=== PATIENT | female | born 1990 | race Caucasian/White ===

== ENCOUNTER 2016-04-07 03:51 | Inpatient (IN) | payer MEDICAID, OTHER ==
[~2016-04-07] VITALS: Ht 170.2 cm; Wt 94.3 kg
[2016-04-07 06:14] VITALS: BP 133/83; PULSE 105; RESP 18; TEMP 97.7; O2SAT 95
[2016-04-07 06:29] VITALS: BP 133/83; PULSE 105; RESP 18; TEMP 97.7; O2SAT 95
[2016-04-07] MEDS ORDERED: ACETAMINOPHEN 325 MG TAB PO PRN (06:30)
[2016-04-07] MEDS ORDERED: ALUMINUM/MAGNESIUM/SIMETH 30 ML CUP PO PRN (06:30)
[2016-04-07] MEDS ORDERED: MAGNESIUM HYDROXIDE SUSP 30 ML CUP PO PRN (06:30)
[2016-04-07] MEDS: hydrOXYzine HCL 50 MG TAB PO PRN ×2 (06:39→13:40)
[2016-04-07] MEDS: NICOTINE 21 MG/24 HR PATCH T-DERMAL SCH (09:00)
[2016-04-07] MEDS ORDERED: ALBUTEROL SULFATE 90 MCG/ACT HFA 8 GM INHALER INH PRN (10:15)
[2016-04-07] MEDS: GABAPENTIN 400 MG CAP PO SCH ×2 (10:51→20:41)
[2016-04-07] MEDS ORDERED: diphenhydrAMINE HCL 50 MG CAP PO PRN (12:15)
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
[2016-04-07 14:14] LABS: AUTOMATED NEUTROPHIL # 5.7 TH/MM3 (1.8-7.7); BASOPHIL % 0.3 % (0.0-2.0); EOSINOPHIL % 0.1 % (0.0-4.0); HEMATOCRIT 36.6 % (35.0-46.0); HEMO FLAGS DIFF FINAL; LYMPH % 24.8 % (9.0-44.0); LYMPHOCYTE # 2.1 TH/MM3 (1.0-4.8); MEAN CORPUSCULAR HEMOGLOBIN 30.1 PG (27.0-34.0); MEAN CORPUSCULAR HGB CONC 33.4 % (32.0-36.0); NEUT % 68.8 % (16.0-70.0); PLATELET COUNT 219 TH/MM3 (150-450); RED BLOOD COUNT 4.07 MIL/MM3 (4.00-5.30); RED CELL DISTRIBUTION WIDTH 12.3 % (11.6-17.2); WHITE BLOOD COUNT 8.3 TH/MM3 (4.0-11.0)
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
[2016-04-07] MEDS ORDERED: RESP: ALBUTEROL 2.5 MG/IPRATROPIUM 0.5 MG NEB (PRN) NEB (16:30)
[2016-04-07] MEDS: ALPRAZolam 1 MG TAB PO SCH (20:41)
[2016-04-07] MEDS: QUEtiapine FUMARATE 300 MG TAB PO SCH (20:41)
[2016-04-07 21:00] VITALS: BP 116/76; PULSE 90; RESP 18; TEMP 98; O2SAT 96
[2016-04-07] MEDS: REMOVE OLD NICOTINE PATCH T-DERMAL SCH (21:00)
[2016-04-08 05:47] VITALS: BP 120/71; PULSE 71; RESP 16; TEMP 98; O2SAT 96
[2016-04-08] MEDS: NICOTINE 21 MG/24 HR PATCH T-DERMAL SCH (09:00)
[2016-04-08] MEDS: GABAPENTIN 400 MG CAP PO SCH ×2 (09:21→21:37)
[2016-04-08] MEDS: ALPRAZolam 1 MG TAB PO SCH ×2 (09:21→21:37)
[2016-04-08] MEDS: PANTOPRAZOLE SOD 40 MG DELAYED RELEASE TAB PO SCH (09:22)
--- NOTE | 2016-04-08 11:57 | HHI.PYPN ---
Subjective Remarks Patient seen and examined with counselor. Chart reviewed. Case discussed with nursing staff. On my examination today, the patient reports that she slept well and is eating well. She says that she feels much improved this morning having been placed back on her psychotropic medications. No SI or HI. Future oriented. Denies side effects from medications. Review of Systems Other No physical complaints today. No wheezing or shortness of breath. Objective Alert: Yes [place]: Person, Place, Date Mood: Calm Affect: Euthymic Memory Intact: Comment (intact) Hallucinations: Other (no AVH) Delusions: No Delusion Type: Other (no delusions) Suicidal: Ideation (denies) Homicidal: Ideation (denies) Insight/Judgement Fair Remarks Thought process linear. No motoric abnormalities noted. Labs Test 04/07/16 13:30 White Blood Count 8.3 TH/MM3 Red Blood Count 4.07 MIL/MM3 Hemoglobin 12.2 GM/DL Hematocrit 36.6 % Mean Corpuscular Volume 90.0 FL Mean Corpuscular Hemoglobin 30.1 PG Mean Corpuscular Hemoglobin 33.4 % Concent Red Cell Distribution Width 12.3 % Platelet Count 219 TH/MM3 Mean Platelet Volume 9.2 FL Neutrophils (%) (Auto) 68.8 % Lymphocytes (%) (Auto) 24.8 % Monocytes (%) (Auto) 6.0 % Eosinophils (%) (Auto) 0.1 % Basophils (%) (Auto) 0.3 % Neutrophils # (Auto) 5.7 TH/MM3 Lymphocytes # (Auto) 2.1 TH/MM3 Monocytes # (Auto) 0.5 TH/MM3 Eosinophils # (Auto) 0.0 TH/MM3 Basophils # (Auto) 0.0 TH/MM3 CBC Comment DIFF FINAL Differential Comment Labs reviewed. CBC here is unremarkable. Vitals/IOs Vital Signs Date Time Temp Pulse Resp B/P Pulse Ox O2 Delivery O2 Flow Rate FiO2 04/08/16 05:47 98.0 71 16 120/71 96 Assessment & Plan Problem List: (1) Adjustment disorder, unspecified ICD Code: F43.20 Assessment & Plan Continue Seroquel and Xanax as ordered. Continue other medications and care as ordered. Justification for Cont. Inpt. Discharge planning. Discharge Planning Monitor overnight. Anticipate discharge no later than tomorrow. Request HC Surrog/Guard Advoc?: No Joao Malaogn MD Apr 08, 2016 11:57
[2016-04-08] MEDS: hydrOXYzine HCL 50 MG TAB PO PRN (18:25)
[2016-04-08 19:55] VITALS: BP 145/60; PULSE 97; RESP 18; TEMP 98.6; O2SAT 100
[2016-04-08] MEDS: REMOVE OLD NICOTINE PATCH T-DERMAL SCH (21:00)
[2016-04-08] MEDS: QUEtiapine FUMARATE 300 MG TAB PO SCH (21:37)
[2016-04-09 06:29] VITALS: BP 121/59; PULSE 62; RESP 18; TEMP 98.2; O2SAT 99
[2016-04-09] MEDS: ALPRAZolam 1 MG TAB PO SCH ×2 (09:01→20:36)
[2016-04-09] MEDS: GABAPENTIN 400 MG CAP PO SCH ×2 (09:01→20:36)
[2016-04-09] MEDS: PANTOPRAZOLE SOD 40 MG DELAYED RELEASE TAB PO SCH (09:01)
[2016-04-09] MEDS: NICOTINE 21 MG/24 HR PATCH T-DERMAL SCH (09:03)
--- NOTE | 2016-04-09 11:03 | HHI.PYPN ---
Subjective Remarks Patient seen and examined with counselor. Chart reviewed. Case discussed with nursing staff. No behavioral issues to report. On my examination today, patient is in fair spirits. She is somewhat anxious about trying to find a way to get back up to [place]. She does say that she feels stable now. Denies side effects from medications. Denies SI or HI. Review of Systems Other No physical complaints today Objective Alert: Yes [place]: Person, Place, Date Mood: Calm Affect: Euthymic (a little anxious) Memory Intact: Comment (remains intact) Hallucinations: Other (no AVH) Delusions: No Delusion Type: Other (no delusions) Suicidal: Ideation (again denies SI) Homicidal: Ideation (denies HI) Insight/Judgement Fair Remarks No motoric abnormalities noted Labs Labs reviewed Vitals/IOs Vital Signs Date Time Temp Pulse Resp B/P Pulse Ox O2 Delivery O2 Flow Rate FiO2 04/09/16 06:29 98.2 62 18 121/59 99 Assessment & Plan Problem List: (1) Adjustment disorder, unspecified ICD Code: F43.20 Assessment & Plan Continue current psychotropics as ordered. Continue other medications and care as ordered. Justification for Cont. Inpt. Discharge planning Discharge Planning Monitor overnight. Anticipate discharge tomorrow Request HC Surrog/Guard Advoc?: No Joao Malagon MD Apr 09, 2016 11:03
[2016-04-09] MEDS ORDERED: NEUR400C PO (13:30)
[2016-04-09] MEDS ORDERED: XANA1TAB2 PO (13:30)
[2016-04-09] MEDS ORDERED: QUET1TAB10 PO (13:30)
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
[2016-04-09] MEDS: hydrOXYzine HCL 50 MG TAB PO PRN (14:21)
[2016-04-09 18:32] VITALS: BP 137/67; PULSE 80; RESP 16; TEMP 98.4; O2SAT 99
[2016-04-09] MEDS: QUEtiapine FUMARATE 300 MG TAB PO SCH (20:36)
[2016-04-09] MEDS: REMOVE OLD NICOTINE PATCH T-DERMAL SCH (21:00)
== END 2016-04-09 21:45 | disposition home or self-care (01) | DRG 882 ==
LOC: H270 06:00
PROVIDERS: ADMIT Psychiatry & Neurology Psychiatry; ATTEND Psychiatry & Neurology Psychiatry
DX: F43.20 Adjustment disorder, unspecified (principal); Z91.14 Patient's other noncompliance with medication regimen; F31.9 Bipolar disorder, unspecified; F90.9 Attention-deficit hyperactivity disorder, unspecified type; Z91.5 Personal history of self-harm; K21.9 Gastro-esophageal reflux disease without esophagitis; J45.909 Unspecified asthma, uncomplicated; F17.210 Nicotine dependence, cigarettes, uncomplicated
CPT/HCPCS: 84703; 85025